=== PATIENT | male | born 1990 | race Caucasian/White ===

== ENCOUNTER 2025-01-23 00:28 | Emergency (ER) | payer SELFPAY ==
[2025-01-23 01:11] LABS: #Basophils 0.13 10x3/uL (0.0-0.2); #Eosinophils 0.06 10x3/uL (0.0-0.7); #Monocytes 1.32 10x3/uL (0.11-0.59); #Neutrophils 7.46 10x3/uL (1.40-6.50); %Basophils 0.8 % (0.0-1.0); %Eosinophils 0.4 % (0.0-10.0); %Lymphocytes 41.5 % (21.0-51.0); %Monocytes 8.6 % (0.0-10.0); %Neutrophils 48.4 % (42.0-75.0); Hematocrit 38.6 % (42.0-52.0); Hemoglobin 13.6 g/dL (14.0-18.0); Mean Corpuscular Hemoglobin 31.1 pg (27.0-31.0); Mean Corpuscular Volume 88.3 fL (78.0-98.0); Platelet Count 505 10x3/uL (130-400); Red Blood Cell (RBC) Count 4.37 mill/uL (4.70-6.10); White Blood Cell (WBC) Count 15.43 10x3/uL (4.8-10.8)
[2025-01-23 01:38] LABS: Magnesium 1.8 mg/dL (1.6-2.6)
[2025-01-23 01:39] LABS: Acetaminophen Less than 10 mcg/mL (Less than 10); Salicylate Less than 8.0 mg/dL (Less than 8.0)
[2025-01-23 01:40] LABS: ALT (SGPT) 19 U/L (Less than 45); AST (SGOT) 49 U/L (11-34); Albumin 4.6 g/dL (3.1-4.5); Alkaline Phosphatase 76 U/L (40-110); Anion Gap 21 mmol/L (10-20); BUN (Urea Nitrogen) 25 mg/dL (8.9-20.6); Bilirubin, Total 0.5 mg/dL (0.3-1.2); CK (CPK) 416 U/L (30-200); Calc. Creatinine Clearance 0 mL/min (70-130); Calcium 10.0 mg/dL (7.8-10.44); Carbon Dioxide 21 mmol/L (22-29); Chloride 101 mmol/L (98-107); Globulin 3.9 g/dL (2.4-3.5); Glucose 99 mg/dL (70-105); Potassium 3.5 mmol/L (3.5-5.1); Sodium 139 mmol/L (136-145)
[2025-01-23 01:44] LABS: Troponin I Less than 0.010 ng/mL (< 0.028)
[2025-01-23 03:18] LABS: Cocaine Metabolite Screen Negative (Negative); THC/Cannabinoid Screen PRELIM POSITIVE (Negative); Tricyclic Screen Negative (Negative)
[2025-01-23 05:33] LABS: Anion Gap 14 mmol/L (10-20); BUN (Urea Nitrogen) 23 mg/dL (8.9-20.6); Calc. Creatinine Clearance 0 mL/min (70-130); Calcium 9.0 mg/dL (7.8-10.44); Carbon Dioxide 23 mmol/L (22-29); Chloride 105 mmol/L (98-107); Glucose 95 mg/dL (70-105); Potassium 3.4 mmol/L (3.5-5.1); Sodium 139 mmol/L (136-145)
== END 2025-01-23 06:04 ==
LOC: ERS 00:28
DX: F19.10 Other psychoactive substance abuse, uncomplicated (principal); N17.9 Acute kidney failure, unspecified; Z55.6 Problems related to health literacy; E87.6 Hypokalemia
CPT/HCPCS: 36415; 51701; 70450; 80053; 80306; 80307; 82550; 83735; 84484; 85025; 93005; 96361; 96374; J2060